=== PATIENT | female | born 1960 | race Two or more races ===

== ENCOUNTER 2019-03-05 19:52 | Emergency (ER) | payer OTHER ==
[~2019-03-05] VITALS: Ht 180.3 cm; Wt 117.0 kg
--- NOTE | 2019-03-05 19:59 | NUR ---
ED Nurse Note: Walk-in patient presents with complaints of fall at work with bilateral knee pain, 8/10 pain level.
--- NOTE | 2019-03-05 20:21 | NUR ---
ED Nurse Note: Patient currently undergoing knee xrays.
[2019-03-05] MEDS ORDERED: IBUPROFEN600 MG ORAL (21:08)
[2019-03-05 21:14] VITALS: BP 167/100
--- NOTE | 2019-03-05 21:14 | NUR ---
ED Nurse Note: Patient tolerated medication well and will be discharge per ER provider. Patient verbalized understanding of discharge instructions, ID band removed. Patient is A&Ox4, ambulatory with steady gait despite pain. Patient departed with all belongings accompanied by her sister.
--- NOTE | 2019-03-06 12:04 | Diagnostic Imaging Report ---
Indication: Knee pain, status post fall Technique: 3 views of the right knee Comparison: None Findings: There is joint space narrowing and proliferative change of the medial and patellofemoral joint compartments. Some lateral proliferative changes are also demonstrated. No definite suprapatellar effusion. No acute fractures. No dislocations. Impression: Degenerative changes. No acute bony trauma
--- NOTE | 2019-03-06 12:07 | Diagnostic Imaging Report ---
Indication: Knee pain, status post fall Technique: 3 views of the left knee Comparison: None Findings: No acute fractures. No dislocations. The joint spaces are preserved. Impression: Negative
--- NOTE | 2019-03-07 06:49 | Emergency Room Report ---
History of Present Illness General Chief Complaint: Lower Extremity Injury Source: Patient Present Illness HPI 58-year-old female presents ED for evaluation. States that she had a mechanical trip and fall at work today where she landed on a parking curb. Landed on both knees. Denies hitting her head or LOC. States she is having pain to both knees. Throbbing, 8 out of 10, nonradiating. Is concerned because she has had surgery of both knees where she had a "cleanout" about 15 years ago. Is able to walk. Denies any other injuries. Doing factors. Denies any other associated symptoms Allergies: Coded Allergies: PENICILLINS (Verified Allergy, Unknown, 03/05/19) Patient History Past Medical History: none Past Surgical History: none Pertinent Family History: none Social History: Denies: smoking, alcohol use, drug use Last Menstrual Period: n/a Now: No Immunizations: UTD Reviewed Nursing Documentation: PMH: Agreed; PSxH: Agreed Nursing Documentation-PMH Past Medical History: No Stated History Review of Systems All Other Systems: negative except mentioned in HPI Physical Exam Vital Signs Date Time Temp Pulse Resp B/P (MAP) Pulse Ox O2 Delivery O2 Flow Rate FiO2 03/05/19 19:55 98.2 81 18 167/100 (122) 95 Room Air Sp02 EP Interpretation: reviewed, normal General Appearance: no apparent distress, alert, GCS 15, non-toxic Head: normocephalic Eyes: bilateral eye normal inspection, bilateral eye PERRL ENT: normal ENT inspection Neck: normal inspection Respiratory: normal inspection Cardiovascular #1: normal inspection Gastrointestinal: normal inspection Rectal: deferred Genitourinary: no CVA tenderness Musculoskeletal: tender - TTP bilateral pain Neurologic: alert, oriented x3, responsive, motor strength/tone normal, sensory intact, speech normal Psychiatric: normal inspection Skin: no rash Lymphatic: normal inspection Procedures Splinting Splinting : Consent: Verbal Pre-Made Type: NUVIA wrap Pre-Proc Neuro Vasc Exam: normal Post-Proc Neuro Vasc Exam: normal Patient Tolerated: Well Complications: None Medical Decision Making Diagnostic Impression: Primary Impression: Knee contusion Qualified Codes: S80.00XA - Contusion of unspecified knee, initial encounter ER Course Hospital Course 58-year-old F presents to ED complaining of bilateral knee pain s/p trip and fall Differential diagnoses include: Fracture, dislocation, sprain, contusion Clinical course Patient placed on stretcher. After initial history and physical, I ordered pain medications and Xrays of bialteral knees Xrays prelim read shows no acute fracture/dislocation. 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 Discussed findings with patient. Placed in nuvia wrap. Safe for discharge for close outpatient follow-up. Will provide orthopedic referrals. States she has a PMD Diagnosis - knee contusion Stable and discharged to home with prescription for Motrin. apply ice, keep elevated. weight bear as tolerated. Followup with PMD. Return to ED if symptoms recur or worsen Other X-Ray Diagnostic Results Other X-Ray Diagnostic Results #1: X-Ray ordered: R knee # of Views/Limited Vs Complete: 3 View Indication: Pain EP Interpretation: Yes Interpretation: no dislocation, no soft tissue swelling, no fractures Impression: No acute disease Electronically Signed by: Electronically signed by Ajay Camargo MD Other X-Ray Diagnostic Results #2: X-Ray ordered: L knee # of Views/Limited Vs Complete: 3 View Indication: Pain EP Interpretation: Yes Interpretation: no dislocation, no soft tissue swelling, no fractures Impression: No acute disease Electronically Signed by: Electronically signed by Ajay Camargo MD Last Vital Signs Date Time Temp Pulse Resp B/P (MAP) Pulse Ox O2 Delivery O2 Flow Rate FiO2 03/05/19 21:14 98.2 18 167/100 95 Room Air 03/05/19 19:55 81 Status: improved Disposition: HOME, SELF-CARE Condition: Stable Scripts Ibuprofen* (MOTRIN*) 600 Mg Tablet 600 MG ORAL Q8H PRN for For Pain, #30 TAB 0 Refills Prov: Ajay Camargo MD 03/05/19 Referrals: NOT CHOSEN IPA/,REFERRING ([facility]) [facility] Open 24 hour /7 days a week by Appointment Only [address] [facility] [id number] Patient Instructions: Contusion-SportsMed Ajay Camargo MD Mar 07, 2019 06:49
== END 2019-03-05 21:15 | disposition home or self-care (01) ==
LOC: EMR 20:29
DX: S80.00XA Contusion of unspecified knee, initial encounter (principal); M17.0 Bilateral primary osteoarthritis of knee; W01.0XXA Fall on same level from slipping, tripping and stumbling without subsequent striking against object, initial encounter; Y92.219 Unspecified school as the place of occurrence of the external cause; Y99.0 Civilian activity done for income or pay
CPT/HCPCS: 99283